=== PATIENT | female | born 1950 | race African-American/Black ===

== ENCOUNTER 2017-10-25 00:49 | Inpatient (IN) | payer OTHER ==
[~2017-10-25] VITALS: Ht 154.9 cm; Wt 56.2 kg
[~2017-10-25 00:49] MED LIST: ACETAMINOPHEN500 M4 PO; BACTRIM DS TAB1 EACH PO; TRAMADOL HCL50 M1 PO
--- NOTE | 2017-10-25 10:50 | Admission Core Measures ---
Acute Coronary Syndrome (CM) ACS Core Measures Acute Coronary Syndrome Diagnosis No Congestive Heart Failure (NEW) CHF Core Measures Congestive Heart Failure Diagnosis No Cerebrovascular Accident (NEW) CVA Core Measures CVA/TIA Diagnosis No Venous Thromboembolism VTE Core Edison (View Protocol) VTE Risk Factors Surgery No Mechanical VTE Prophylaxis d/t N/A MechProphylax Ordered No VTE Pharm Prophylaxis d/t NA PharmProphylax ordered Problem List As ranked by this Provider includes Assessment & Plan 1. Unilateral primary osteoarthritis, right hip HOME MEDS Home Med List Acetaminophen 500 MG TABLET 2 TAB PO PRN PAIN (Reported) Sulfamethoxazole/Trimethoprim (Bactrim Ds Tablet) 800 MG-160 MG TABLET 1 TAB PO BID ABX (Reported) Tramadol HCl 50 MG TABLET 1 TAB PO PRN PAIN (Reported)
[2017-10-25] MEDS ORDERED: MIRALAX17 G1 PO (10:51)
[2017-10-25] MEDS ORDERED: COLACE100 M1 PO (10:51)
[2017-10-25] MEDS ORDERED: DILAUDID2 M1 PO (10:51)
[2017-10-25] MEDS ORDERED: PRILOSEC OTC20 M1 PO (10:51)
--- NOTE | 2017-10-25 10:55 | Patient Discharge Instructions ---
Discharge Instructions General Discharge Information You were seen/treated for: Right hip pain related to unilateral primary osteoarthritis You had these procedures: Right total hip replacement Watch for these problems: Increasing pain despite the use of pain medication Increasing redness, warmth or swelling Drainage of any type from incision Inability to bear weight on operative leg Persistent nausea and vomiting Fever greater than 101.5 degrees Do not soak the wound: Yes No bath, but you may shower: Yes Other wound care: Please keep wound clean and dry. No ointments or lotions of any type on or near incision at any time. No exceptions. Your dressing will be changed by your nurse on the second day after your surgery. Daily dry dressing changes are recommended each day thereafter. Do not soak your wound in a bath at any time until otherwise indicated by your surgeon. You may shower, please dry wound immediately after shower with a clean towel. Special Instructions: Constipation: Pain medication can cause constipation. Dr. Gonzalez has recommended that you take Colace and miralax each day. You may discontinue this medication if you develop loose stool or diarrhea. If you wish to continue this medication, it is available over the counter. If you are unable to move your bowels after several days, if you are unable to pass gas and are developing bloating, nausea, or vomiting as a result, please contact your doctor. Diet Continue normal diet: Yes Recommended Diet: Regular Acute Coronary Syndrome Inclusion Criteria At DC or during hospital stay patient has or had the following: ACS DIAGNOSIS No Discharge Core Measures Meds if any: Prescribed or Continued at Discharge Meds if any: NOT Prescribed or Continued at Discharge Congestive Heart Failure Inclusion Criteria At DC or during hospital stay patient has or had the following: CHF DIAGNOSIS No Discharge Core Measures Meds if any: Prescribed or Continued at Discharge Meds if any: NOT Prescribed or Continued at Discharge Cerebrovascular accident Inclusion Criteria At DC or during hospital stay patient has or had the following: CVA/TIA Diagnosis No Discharge Core Measures Meds if any: Prescribed or Continued at Discharge Meds if any: NOT Prescribed or Continued at Discharge Venous thromboembolism Inclusion Criteria VTE Diagnosis No VTE Type NONE VTE Confirmed by (Test) NONE Discharge Core Measures - Per Current guidelines, there needs to be overlap - treatment for the first 5 days of Warfarin therapy. - If discharged on Warfarin prior to 5 days of - overlap therapy, the patient will need to be - assessed for post discharge needs including - *Post discharge parental anticoagulation - *Warfarin and/or parental anticoagulation education - *Follow up date to check INR post discharge At least 5 days overlap therapy as Inpatient No Meds if any: Prescribed or Continued at Discharge Note: Overlap Therapy is Warfarin and Anticoagulant Meds if any: NOT Prescribed or Continued at Discharge
--- NOTE | 2017-10-25 11:00 | Surgical Discharge Summary ---
Visit Information Visit Dates Admission Date: 10/25/17 Discharge Date: 10/28/17 History of Present Illness Chief Complaint: Right hip pain related to unilateral primary osteoarthritis Surgical History Pertinent Surgical History: non-contributory Review of Systems: see H&P Hospital Course Course Attending Physician: Roman Gonzalez MD Primary Care Physician: Harvinder ROSENBERG,[facility] Course: Patient was admitted to the hospital for an elective total joint replacement. The procedure was tolerated well and patient was transferred to a general surgical floor. Diet was advanced and tolerated, and the patient voided spontaneously. The patient was evaluated and treated by physical therapy. At the time of hospital discharge, the vital signs were stable, neurovascular status was intact, and pain was controlled with the use of oral pain medications. Allergies: Coded Allergies: Penicillins (WELTS 10/22/17) aspirin (DANILO, JESE 10/22/17) Disposition Summary Disposition Principal Diagnosis: Unilateral primary osteoarthritis right hip Additional Diagnosis: None Discharge Disposition: home health services Discharge Instructions General Discharge Information Code Status: Full Code Patient's Diet: Regular, advance as tolerated Patient's Activity: WBAT Follow-Up Instructions/Appts: Follow up with Dr. Gonzalez in 6 weeks from date of surgery. Please call his office to arrange and/or confirm this appointment. Medications at Discharge Discharge Medications: Stop taking the following medications: Sulfamethoxazole/Trimethoprim (Bactrim Ds Tablet) 800 MG-160 MG TABLET ORAL TWICE DAILY Tramadol HCl (Tramadol HCl) 50 MG TABLET ORAL as needed for PAIN Continue taking these medications: Acetaminophen (Acetaminophen) 500 MG TABLET 2 Tablet ORAL EVERY SIX HOURS NEEDED as needed for PAIN Comments: NOT GIVEN IN HOSPITAL Start taking the following new medications: Docusate Sodium (Colace) 100 MG CAPSULE 1 Capsule ORAL TWICE DAILY Qty = 14 No Refills Instructions: DISCONTINUE USE IF YOU DEVELOP LOOSE STOOL OR DIARRHEA Comments: Last Taken: 10/27/17 Time: 9:00 AM Polyethylene Glycol 3350 (Miralax) 17 GRAM POWD.PACK 1 Packet ORAL DAILY Qty = 7 No Refills Instructions: dissolve in water, DISCONTINUE USE IF YOU DEVELOP LOOSE STOOL OR DIARRHEA Comments: Last Taken: 10/27/17 Time: 9:00 AM Omeprazole Magnesium (Prilosec Otc) 20 MG TABLET.DR 1 Tablet ORAL DAILY Qty = 30 No Refills Comments: Last Taken: 10/28/17 Time: 5:30 AM Apixaban (Eliquis) 2.5 MG TABLET 1 Tablet ORAL TWICE DAILY Qty = 60 No Refills Comments: Last Taken: 10/28/17 Time: 8:30 AM Oxycodone HCl (Roxicodone) 5 MG TABLET 1-2 Tablet ORAL EVERY 4-6 HOURS NEEDED as needed for PAIN Qty = 30 No Refills
[2017-10-25] MEDS ORDERED: ELIQUIS2.5 M1 PO (12:17)
--- NOTE | 2017-10-25 14:26 | RADIOLOGY REPORT ---
EXAMINATION: XR HIP, RIGHT CLINICAL INFORMATION: PACU status post right hip arthroplasty. COMPARISON: None. TECHNIQUE: Frontal and cross table views of the right hip were obtained. FINDINGS: The study demonstrates a right total hip arthroplasty. The hardware appears intact and in good anatomic alignment. No fractures are demonstrated. There are expected postoperative changes in the periarticular soft tissues. IMPRESSION: 1. X-rays demonstrate sequelae of a right total hip arthroplasty.
[2017-10-25 14:44] VITALS: BP 122/72
--- NOTE | 2017-10-25 15:10 | PN- Orthopedic ---
Subjective Subjective: Postop check some nausea, no emesis. walked with pt, did well. Denies chest pain/shortness of breath. Pain well controlled. awaiting meal. due to void postop Objective Vital Signs and I&Os Vital Signs Date Time Temp Pulse Resp B/P B/P Pulse O2 O2 Flow FiO2 Mean Ox Delivery Rate 10/25 1444 97.4 60 18 122/72 98 Room Air Room Air Physical Exam: GEN: NAD CARD: S1S2 PULM: No audible wheeze ABD: soft, nt EXT: R hip dressing cdi. ice pack in place. calves soft nt bilaterally, ALPS on. Palpable DP bilaterally. Gross dorsi/plantar flexion intact. Gross sensation intact. Assessment/Plan Assessment/Plan A: 76F POD #0 SP right GALINDO, with some postop nausea, ambulated with PT, pain controlled, currently stable. P: - DVT ppx: eliquis 2.5 bid, alps - Regular diet as tolerated - prn pain meds - prn antiemetics - OOB, ambulate, WBAT, PT - abx: 23 hours postop prophylaxis - am labs -await postop void - will dw attending Core Measures Venous Thromboembolism VTE Risk Factors Surgery No Mechanical VTE Prophylaxis d/t N/A MechProphylax Ordered No VTE Pharm Prophylaxis d/t NA PharmProphylax ordered
--- NOTE | 2017-10-25 15:43 | Operative Report ---
Operative/Inv Procedure Report Surgery Date: 10/25/17 Name of Procedure: 1. Right total hip replacement 2. Left knee cortisone injection Pre-Operative Diagnosis: 1. Primary right hip DJD 2. Primary right knee DJD Post-Operative Diagnosis: Same Estimated Blood Loss: 250 Surgeon/Stove Bottom Worker: Lisa ROSENBERG,Roman Rios Anesthesia: block Operative/Procedure Note Note: Description of Procedure: The patient was taken to the operating room and positively identified. After induction of spinal anesthesia and administration of appropriate pre-operative antibiotics, the patient was positioned supine on the operating room table and all bony prominences were well padded. The left knee was prepped sterilely and injected with a mixture of 2 mL of Depo- Medrol and 5 mL of half percent Marcaine. A Band-Aid was placed over the injection site. Attention was then turned to the right lower extremity. After performing a surgical timeout, the right lower extremity was prepped and draped in the usual sterile fashion. A direct anterior approach was made to the right hip. The incision was carried sharply through superficial soft tissues to the level of the fascia. Meticulous hemostasis was maintained with Bovie electocautery. The fascia over the tensor fascia yanni muscle was opened sharply and the interval between the TFL and the sartorius was entered bluntly taking care to stay lateral to the lateral femoral cutaneous nerve. Retractors were placed around the femoral neck and the pericapsular fat was identified. The ascending branches of the lateral femoral circumflex vessels were identified and carefully coagulated. The pericapsular fat and anterior capsule were then resected. A napkin ring osteotomy was performed and the femoral head was removed without difficulty. Attention was then turned to the acetabulum. After appropriate placement of retractors, the acetabulum was exposed. Soft tissue was cleaned from the acetabular margin and notch. Overhanging osteophytes were removed and the teardrop was exposed. The acetabulum was then sequentially reamed to accept a 50 mm Tucker Tritanium hemispherical cluster shell. This was impacted into place in the appropriate position and fitted with a 32 mm Trident X3 zero degree polyethylene insert. Attention was then turned to the femur. After performing the appropriate ligament releases, the proximal femur was exposed. It was then sequentially broached to accept a size #2 Haywood Accolade II stem. This was trialed for leg length and stability. The trial component was removed and the final component was impacted into place. The trunnion was carefully cleaned and fit with a 32 mm, 0 Biolox delta ceramic femoral head. The hip was reduced and put through a full range of motion and found to be stable. The articular space was then irrigated with sterile saline. The periarticular soft tissues were infilitrated with Marcaine. The fascial layer was closed with interrupted #1 vicryl suture and the skin was re-approximated with interrupted 2 -0 vicryl. The skin was closed with a running 3-0 V-Lock suture. Steri-strips and a sterile dressing were applied. The patient was awakened and taken to the recovery room in satisfactory condition.
[2017-10-25 20:14] VITALS: BP 90/64
[2017-10-25 21:54] VITALS: BP 120/74
[2017-10-25 23:29] VITALS: BP 107/63
[2017-10-26 06:49] VITALS: BP 120/71
[2017-10-26 08:04] LABS: ABSOLUTE BASOPHIL COUNT 0 /CUMM (0.0-0.2); ABSOLUTE EOSINOPHIL COUNT 0.1 /CUMM (0.0-0.7); ABSOLUTE GRANULOCYTE CT 5.7 /CUMM (1.4-6.5); ABSOLUTE LYMPH COUNT 1.5 /CUMM (1.2-3.4); ABSOLUTE MONOCYTE COUNT 0.6 /CUMM (0.10-0.60); BASOPHIL % 0.2 % (0.0-2.0); EOSINOPHIL % 1.6 % (0-5); GRANULOCYTE % 72.2 % (42.2-75.2); HEMATOCRIT 33.1 % (37-47); MEAN CORPUSCULAR HGB 29.3 PG (27.0-31.0); MEAN CORPUSCULAR HGB CONC 33.3 G/DL (33.0-37.0); MEAN CORPUSCULAR VOLUME 88.1 FL (81.0-99.0); MEAN PLATELET VOLUME 7.1 FL (7.4-10.4); PLATELET COUNT 367 /CUMM (130-400); RBC DISTRIBUTION WIDTH 14.2 % (11.5-14.5); RED BLOOD CELL CT 3.75 /CUMM (4.20-5.40); WHITE BLOOD CELL COUNT 7.8 /CUMM (4.8-10.8)
--- NOTE | 2017-10-26 08:18 | PN- Orthopedic ---
Teena Mendez 10/26/17 0811: Subjective Subjective: No acute events overnight. Pain well controlled. Has not tolerated a diet yet, but voiding spontaneously. Nausea resolved from overnight, none currently. Has been out of bed to bathroom only. Has been ambulating with PT, anticipates discharge home tomorrow because daughter not available today. Objective Vital Signs and I&Os Vital Signs Date Time Temp Pulse Resp B/P B/P Pulse O2 O2 Flow FiO2 Mean Ox Delivery Rate 10/26 0649 98.3 75 20 120/71 98 Room Air 10/25 2329 98.4 76 18 107/63 97 Room Air 10/25 2154 120/74 10/25 2013 98.0 65 20 90/64 97 Room Air 10/25 1444 97.4 60 18 122/72 98 Room Air Room Air Intake & Output 10/26 1600 10/26 0800 10/26 0000 10/25 1600 10/25 0800 10/25 0000 Intake Total 600 2060 Output Total 600 1850 Balance 0 210 Intake, IV 600 1260 Intake, Oral 800 Output, Urine 600 1850 Patient 124 lb Weight Weight Reported by Patient Measurement Method Physical Exam: GEN: NAD Lungs: Normal work of breathing Extremities: R hip dressing clean, dry, intact. No calf tenderness or edema. Palpable DP bilaterally. 5/5 dorsi/plantar flexion. Sensation intact. SCDs in place. Results Last 48 Hours of Labs: Laboratory Tests 10/26 0710 Chemistry Sodium Pending Potassium Pending Chloride Pending Carbon Dioxide Pending Anion Gap Pending BUN Pending Creatinine Pending BUN/Creatinine Ratio Pending Hematology CBC w Diff NO MAN DIFF REQ WBC (4.8 - 10.8 /CUMM) 7.8 RBC (4.20 - 5.40 /CUMM) 3.75 L Hgb (12.0 - 16.0 G/DL) 11.0 L Hct (37 - 47 %) 33.1 L MCV (81.0 - 99.0 FL) 88.1 MCH (27.0 - 31.0 PG) 29.3 MCHC (33.0 - 37.0 G/DL) 33.3 RDW (11.5 - 14.5 %) 14.2 Plt Count (130 - 400 /CUMM) 367 MPV (7.4 - 10.4 FL) 7.1 L Gran % (42.2 - 75.2 %) 72.2 Lymphocytes % (20.5 - 51.1 %) 18.7 L Monocytes % (1.7 - 9.3 %) 7.3 Eosinophils % (0 - 5 %) 1.6 Basophils % (0.0 - 2.0 %) 0.2 Absolute Granulocytes (1.4 - 6.5 /CUMM) 5.7 Absolute Lymphocytes (1.2 - 3.4 /CUMM) 1.5 Absolute Monocytes (0.10 - 0.60 /CUMM) 0.6 Absolute Eosinophils (0.0 - 0.7 /CUMM) 0.1 Absolute Basophils (0.0 - 0.2 /CUMM) 0 Assessment/Plan Assessment/Plan Assessment: 76F POD #1 SP right GALINDO, stable postoperatively. Plan: - Pain control: - DVT ppx: eliquis 2.5 bid, SCds - Regular diet, discontinue IVF - PT: OOB, ambulate, WBAT - abx: 23 hours postop prophylaxis - CBC reviewed, BMP pending - Dispo: likely discharge tomorrow, patient does not have help at home today - Will discuss with attending Core Measures Venous Thromboembolism VTE Risk Factors Surgery No Mechanical VTE Prophylaxis d/t N/A MechProphylax Ordered No VTE Pharm Prophylaxis d/t NA PharmProphylax ordered Abigail Aguero 10/26/17 0820: Objective Vital Signs and I&Os Vital Signs Date Time Temp Pulse Resp B/P B/P Pulse O2 O2 Flow FiO2 Mean Ox Delivery Rate 10/26 0649 98.3 75 20 120/71 98 Room Air 10/25 2329 98.4 76 18 107/63 97 Room Air 10/25 2154 120/74 10/25 2013 98.0 65 20 90/64 97 Room Air 10/25 1444 97.4 60 18 122/72 98 Room Air Room Air Intake & Output 10/26 1600 10/26 0800 10/26 0000 10/25 1600 10/25 0810/25 0000 Intake Total 600 2060 Output Total 600 1850 Balance 0 210 Intake, IV 600 1260 Intake, Oral 800 Output, Urine 600 1850 Patient 124 lb Weight Weight Reported by Patient Measurement Method
[2017-10-26 14:15] VITALS: BP 122/64
[2017-10-26 23:10] VITALS: BP 111/63
[2017-10-27 04:00] VITALS: BP 108/60
[2017-10-27 06:54] VITALS: BP 118/68
[2017-10-27] MEDS ORDERED: PERCOCET 5-3251 EACH PO (09:10)
--- NOTE | 2017-10-27 09:46 | PN- Orthopedic ---
Subjective Subjective: Experiencing new onset nausea right now, had previously been tolerating po pain meds. Improved with zofran. Denies chest pain, shortness of breath an difficulty breathing. Has gregory-incisional pain. Has been ambulating. Is going to try for a discharge to home with [facility] today. Objective Vital Signs and I&Os Vital Signs Date Time Temp Pulse Resp B/P B/P Pulse O2 O2 Flow FiO2 Mean Ox Delivery Rate 10/27 0654 97.9 85 20 118/68 95 Room Air 10/27 0400 98.7 80 16 108/60 97 10/26 2310 98.9 73 20 111/63 99 Room Air 10/26 1415 98.4 86 20 122/64 95 Room Air Intake & Output 10/27 1600 10/27 0800 10/27 0000 10/26 1600 10/26 0800 10/26 0000 Intake Total 240 240 754 879 9523 Output Total 900 1000 8123 363 1396 Balance -660 -760 -845 0 210 Intake, IV 711 121 8797 Intake, Oral 240 240 720 800 Output, Urine 900 1000 1202 297 2838 Patient 124 lb Weight Weight Reported by Patient Measurement Method Physical Exam: General: Alert and oriented x3, no acute distress Cards: RRR, s1s2 Pulm: CTA bilaterally ABD: Non-tender, non-distended Extremities: Moves all extremities, distal sensation intact. Skin warm and well perfused. Distal pulses palpable. Bilateral calves soft and non-tender Surgical site: Right thigh. Dressing dry and intact. Thigh compartments soft, swelling noted around incision Assessment/Plan Assessment/Plan POD 2, s/p R GALINDO -Continue eliquis for dvt ppx -Continue oxycodone for pain -Diet as tolerated, watch nausea -OOB, WBAT Anticipate dc to home if nausea resolves Will discuss POC with dr. Gonzalez Core Measures Venous Thromboembolism VTE Risk Factors Surgery No Mechanical VTE Prophylaxis d/t N/A MechProphylax Ordered No VTE Pharm Prophylaxis d/t NA PharmProphylax ordered
[2017-10-27 11:02] VITALS: BP 108/60
[2017-10-27 14:12] LABS: ABSOLUTE BASOPHIL COUNT 0 /CUMM (0.0-0.2); ABSOLUTE EOSINOPHIL COUNT 0.1 /CUMM (0.0-0.7); ABSOLUTE GRANULOCYTE CT 7.2 /CUMM (1.4-6.5); ABSOLUTE LYMPH COUNT 1.8 /CUMM (1.2-3.4); ABSOLUTE MONOCYTE COUNT 0.7 /CUMM (0.10-0.60); BASOPHIL % 0.3 % (0.0-2.0); EOSINOPHIL % 0.9 % (0-5); GRANULOCYTE % 73.6 % (42.2-75.2); MEAN CORPUSCULAR HGB 28.1 PG (27.0-31.0); MEAN CORPUSCULAR HGB CONC 31.9 G/DL (33.0-37.0); MEAN CORPUSCULAR VOLUME 88.2 FL (81.0-99.0); MEAN PLATELET VOLUME 7.4 FL (7.4-10.4); PLATELET COUNT 358 /CUMM (130-400); RBC DISTRIBUTION WIDTH 14.1 % (11.5-14.5); RED BLOOD CELL CT 3.97 /CUMM (4.20-5.40); WHITE BLOOD CELL COUNT 9.8 /CUMM (4.8-10.8)
[2017-10-27 14:20] VITALS: BP 102/60
[2017-10-27 19:05] VITALS: BP 108/64
[2017-10-27 22:17] VITALS: BP 120/68
[2017-10-28 06:25] VITALS: BP 116/64
[2017-10-28] MEDS ORDERED: ROXICODONE5 M1 PO (08:55)
--- NOTE | 2017-10-28 09:34 | PN- Orthopedic ---
Subjective Subjective: Reports nausea after taking oxycodone for pain and eating eggs for breakfast. Nausea resolved with sublingual Zofran. She reports passing flatus and moved her bowels. She offers no other complaints. Objective Vital Signs and I&Os Vital Signs Date Time Temp Pulse Resp B/P B/P Pulse O2 O2 Flow FiO2 Mean Ox Delivery Rate 10/28 0625 97.8 72 18 116/64 96 10/27 2217 98.4 79 20 120/68 91 Room Air 10/27 1905 99.0 82 18 108/64 95 Room Air 10/27 1420 98.7 86 20 102/60 96 Room Air 10/27 1102 98.5 78 20 108/60 97 Room Air Intake & Output 10/28 1600 10/28 0800 10/28 0000 10/27 1600 10/27 0000 Intake Total 240 480 820 240 240 Output Total 900 1750 1446 572 6163 Balance -660 -1270 -330 -660 -760 Intake, IV 0 100 Intake, Oral 240 480 720 240 240 Number 0 1 Bowel Movements Output, Urine 900 1750 5182 091 7844 Physical Exam: Gen - in mild distress related to nausea Cards - S1S2 Lungs - CTAB Abd - soft, nondistended, normactive bs, nontender Ext - R hip dressing c/d/i, moves all extremities, nvi, teds in place, no edema or calf tenderness B/L Current Medications: Current Medications Sig/Rena Start time Last Medication Dose Route Stop Time Status Admin Acetaminophen 650 MG Q4P PRN 10/27 1315 AC 10/28 PO 0528 Acetaminophen 1,000 MG Q6P PRN 10/26 1030 DC 10/27 N/A 1 UNIT IV 1313 Apixaban 2.5 MG BID 10/26 1000 AC 10/28 PO 0827 Docusate Sodium 100 MG BID 10/25 2200 AC 10/27 PO 1056 Omeprazole 40 MG DAILY AC 10/26 0700 AC 10/28 PO 0527 Ondansetron HCl 4 MG ONCE ONE 10/28 0930 DC 10/28 PO 10/28 0931 0924 Ondansetron HCl 4 MG Q6P PRN 10/25 1445 AC 10/27 IV 0832 Oxycodone HCl 10 MG Q4P PRN 10/26 1115 AC 10/28 PO 0827 Oxycodone HCl 5 MG Q4P PRN 10/26 1030 AC 10/27 PO 1100 Polyethylene Glycol 17 GM DAILY 10/26 1000 AC 10/27 PO 1057 Promethazine HCl 12.5 MG Q6P PRN 10/25 1445 AC IV 11/01 1044 Results Last 48 Hours of Labs: Laboratory Tests 10/27 1320 Chemistry Sodium (137 - 145 mmol/L) 134 L Potassium (3.5 - 5.1 mmol/L) 4.3 Chloride (98 - 107 mmol/L) 99 Carbon Dioxide (22 - 30 mmol/L) 24 Anion Gap (5 - 16) 11 BUN (7 - 17 mg/dL) 7 Creatinine (0.5 - 1.0 mg/dL) 0.7 Estimated GFR (>60 ml/min) > 60 BUN/Creatinine Ratio (7 - 25 %) 10.0 Hematology CBC w Diff NO MAN DIFF REQ WBC (4.8 - 10.8 /CUMM) 9.8 RBC (4.20 - 5.40 /CUMM) 3.97 L Hgb (12.0 - 16.0 G/DL) 11.2 L Hct (37 - 47 %) 35.0 L MCV (81.0 - 99.0 FL) 88.2 MCH (27.0 - 31.0 PG) 28.1 MCHC (33.0 - 37.0 G/DL) 31.9 L RDW (11.5 - 14.5 %) 14.1 Plt Count (130 - 400 /CUMM) 358 MPV (7.4 - 10.4 FL) 7.4 Gran % (42.2 - 75.2 %) 73.6 Lymphocytes % (20.5 - 51.1 %) 18.0 L Monocytes % (1.7 - 9.3 %) 7.2 Eosinophils % (0 - 5 %) 0.9 Basophils % (0.0 - 2.0 %) 0.3 Absolute Granulocytes (1.4 - 6.5 /CUMM) 7.2 H Absolute Lymphocytes (1.2 - 3.4 /CUMM) 1.8 Absolute Monocytes (0.10 - 0.60 /CUMM) 0.7 H Absolute Eosinophils (0.0 - 0.7 /CUMM) 0.1 Absolute Basophils (0.0 - 0.2 /CUMM) 0 Assessment/Plan Assessment/Plan 66 F POD 3 s/p R GALINDO with persistent nausea related to narcotics Cont reg diet Zofran po for nausea ES Tylneol for pain, oxycodone for breakthrough DVT ppx - alps, teds, eliquis bid GI ppx on board Bowel regimen on board OOB, WBAT Anticipate d/c home w/ [facility] today if nausea resolves Will d/w Dr. Gonzalez Core Measures Venous Thromboembolism VTE Risk Factors Surgery No Mechanical VTE Prophylaxis d/t N/A MechProphylax Ordered No VTE Pharm Prophylaxis d/t NA PharmProphylax ordered
[2017-10-28] MEDS ORDERED: ZOFRAN ODT4 M1 SL (10:56)
[2017-10-28 14:43] VITALS: BP 108/72
== END 2017-10-28 16:15 | disposition home health service (06) | DRG 470 ==
LOC: SDA 00:49 → ENRESERV 12:59 → ENTRNSPT 14:08 → EDTRNSPT 14:25 → EDTRNSPTSTS 14:25 → 2NB 14:37 → CMPTRNSPT 14:46 → ENPENDDIS 10-28 08:59 → ENTRNSPT 10-28 15:59 → 2NB 10-28 16:15 → CMPTRNSPT 10-28 16:34
PROVIDERS: Nurse Practitioner; Physician Assistant Surgical
PROC: 3E0U33Z Introduction of Anti-inflammatory into Joints, Percutaneous Approach (ICD-10-PCS; principal; 2017-10-25)
PROC: 0SR904A Replacement of Right Hip Joint with Ceramic on Polyethylene Synthetic Substitute, Uncemented, Open Approach (ICD-10-PCS; principal; 2017-10-25)
PROC: 3E0U3BZ Introduction of Anesthetic Agent into Joints, Percutaneous Approach (ICD-10-PCS; principal; 2017-10-25)
DX: M16.11 Unilateral primary osteoarthritis, right hip (principal); Q21.1 Atrial septal defect; I10 Essential (primary) hypertension; M17.11 Unilateral primary osteoarthritis, right knee; Z88.0 Allergy status to penicillin; M72.2 Plantar fascial fibromatosis; E78.5 Hyperlipidemia, unspecified
CPT/HCPCS: 2NBP; 36415; 73502-RT; 82436; 88304; 97110-GO; 97116-GO; 97161-GP; 97530-GO; J0131; J0690; J0735; J1030; J1630; J2405; J2550; J7040; J7042